=== PATIENT | male | born 1940 | race Caucasian/White ===

== ENCOUNTER 2017-05-04 12:54 | Inpatient (IN) | payer OTHER ==
[~2017-05-04] VITALS: Ht 170.2 cm; Wt 82.8 kg
[~2017-05-04 12:54] MED LIST: AMMONIUM LACTA224 GM TP; BUSPAR15 MG PO; CHILDREN'S ASPI81 M1 PO; CLARITIN,ALAVAR10 MG PO; CLONIDINE HCL0.1 MG PO; COZAAR100 MG PO; DAILY VALUE1 EACH PO; EXTRA STRENGTH500 M1 PO; FENOFIBRATE145 M1 PO; FINASTERIDE5 MG PO; FLOVENT DISKUS1 DIS2 IH; LOPRESSOR50 MG PO; METFORMIN HCL500 MG PO; RISPERDAL0.5 MG PO
[2017-05-04 14:12] LABS: EOSINOPHIL (%) 0.1 % (0-5); HEMATOCRIT 30.5 % (38.0-50.0); IMMATURE GRANULOCYTE (%) 0.7 % (0.0-0.7); IMMATURE GRANULOCYTE COUNT 0.1 K/uL; INSTRUMENT ABS NEUTROPHIL CT 13.6 K/uL; LYMPHOCYTE COUNT 1.5 K/uL (1.0-2.8); MCH 29.9 PG (29.0-34.0); MCHC 32.8 G/DL (30.0-36.0); MEAN PLAT.VOLUME 10.3 uM^3 (9.0-12.4); MONOCYTE (%) 3.2 % (3-12); MONOCYTE COUNT 0.5 K/uL (0-0.8); NEUTROPHIL (%) 86.5 % (45-76); NEUTROPHIL COUNT 13.6 K/uL (1.8-6.4); PLATELET COUNT 257 K/uL (156-360); RBC DIS.WIDTH-CV 13.1 % (11.8-14.6); RBC DIS.WIDTH-SD 42.2 % (39-53); RED BLOOD COUNT 3.35 M/uL (4.00-5.50); WHITE BLOOD COUNT 15.8 K/uL (4.1-10.2)
[2017-05-04 14:20] LABS: INTER. NORMALIZED RATIO 1.1; PROTHROMBIN TIME 12.3 SEC (10.2-12.9)
[2017-05-04 14:25] LABS: CHLORIDE 108 mEq/L (99-109); POTASSIUM 5.1 mEq/L (3.7-5.4); SODIUM 142 mEq/L (136-147)
[2017-05-04 14:27] LABS: GLUCOSE 184 mg/dL (70-99)
[2017-05-04 14:29] LABS: ANION GAP 12 MEQ/L (2-14)
[2017-05-04 14:31] LABS: GFR ESTIMATE (CALCULATED) > 59 mL/min/
[2017-05-04 14:32] LABS: UREA NITROGEN (BUN) 72 mg/dL (9-23)
[2017-05-04] MEDS ORDERED: FLONASE16 G1 BOTH NARES (16:20)
[2017-05-04] MEDS ORDERED: TOLNAFTATE10 ML TP (16:21)
[2017-05-04] MEDS ORDERED: SERTRALINE HCL25 MG PO (16:22)
[2017-05-04] MEDS ORDERED: SERTRALINE HCL50 MG PO (16:22)
[2017-05-04] MEDS ORDERED: SIMVASTATIN10 MG PO (16:23)
[2017-05-04] MEDS ORDERED: CHLORHEXIDINE473 ML MM (16:25)
[2017-05-04] MEDS ORDERED: GEMFIBROZIL600 MG PO (16:25)
[2017-05-04] MEDS ORDERED: RISPERDAL1 MG PO (16:26)
[2017-05-04] MEDS ORDERED: TYLENOL REGULA325 MG PO (16:27)
[2017-05-04] MEDS ORDERED: PHILLIPS'400 MG/5 M PO (16:27)
[2017-05-04] MEDS ORDERED: ROBAFEN DM COU118 M1 PO (16:27)
[2017-05-04] MEDS ORDERED: HALCION0.25 MG PO ×2 (16:28→16:29)
[2017-05-04 20:50] VITALS: BP 146/85
[2017-05-04 23:36] LABS: HEMATOCRIT 25.8 % (38.0-50.0); MCV 90.8 FL (86-99)
[2017-05-05 00:39] VITALS: BP 146/85
[2017-05-05 02:43] LABS: POINT-OF-CARE METER ID UU13113725
[2017-05-05 05:35] VITALS: BP 150/86
[2017-05-05 06:32] LABS: POINT-OF-CARE METER ID UU13113725
[2017-05-05 11:16] LABS: POINT-OF-CARE METER ID UU13113725
[2017-05-05 12:28] LABS: HEMATOCRIT 27.6 % (38.0-50.0); MCV 93.9 FL (86-99)
[2017-05-05 16:04] LABS: POINT-OF-CARE METER ID UU13113725
[2017-05-05 17:40] LABS: HEMATOCRIT 25.6 % (38.0-50.0); MCV 93.4 FL (86-99)
[2017-05-05 23:31] LABS: HEMATOCRIT 24.7 % (38.0-50.0); MCV 92.2 FL (86-99)
[2017-05-06 06:27] VITALS: BP 199/83
[2017-05-06 06:28] LABS: HEMATOCRIT 24.8 % (38.0-50.0); MCV 92.9 FL (86-99)
[2017-05-06 06:58] LABS: ANION GAP 7 MEQ/L (2-14); CHLORIDE 117 MEQ/L (99-109); GFR ESTIMATE (CALCULATED) > 59 mL/min/; GLUCOSE 149 mg/dL (70-99); SAMPLE HEMOLYSIS CHECK 0; SAMPLE ICTERIC CHECK 0; SAMPLE LIPEMIA CHECK 0; SODIUM 148 MEQ/L (136-147)
[2017-05-06 07:11] LABS: POTASSIUM 3.7 MEQ/L (3.7-5.4); UREA NITROGEN (BUN) 34 mg/dL (9-23)
[2017-05-06 08:48] VITALS: BP 150/80
[2017-05-06 15:09] LABS: HEMATOCRIT 22.6 % (38.0-50.0); MCV 93.8 FL (86-99)
[2017-05-06 16:08] VITALS: BP 162/68
[2017-05-06 17:36] VITALS: BP 162/78
[2017-05-06 17:38] LABS: POINT-OF-CARE METER ID UU13113725
[2017-05-06 20:58] LABS: POINT-OF-CARE METER ID UU13113725
[2017-05-07 07:27] LABS: ANION GAP 6 MEQ/L (2-14); CHLORIDE 117 MEQ/L (99-109); GFR ESTIMATE (CALCULATED) > 59 mL/min/; GLUCOSE 157 mg/dL (70-99); POTASSIUM 3.3 MEQ/L (3.7-5.4); SAMPLE HEMOLYSIS CHECK 0; SAMPLE ICTERIC CHECK 0; SAMPLE LIPEMIA CHECK 0; SODIUM 148 MEQ/L (136-147); UREA NITROGEN (BUN) 27 mg/dL (9-23)
[2017-05-07 07:35] LABS: HEMATOCRIT 26.4 % (38.0-50.0); MCV 91.7 FL (86-99)
[2017-05-07 08:00] VITALS: BP 181/75
[2017-05-07 21:34] LABS: POINT-OF-CARE METER ID UU13113725
[2017-05-07 22:42] VITALS: BP 139/80
[2017-05-08 05:33] VITALS: BP 162/70
[2017-05-08 06:02] LABS: HEMATOCRIT 26.3 % (38.0-50.0)
[2017-05-08 06:09] LABS: POINT-OF-CARE METER ID UU13113725
[2017-05-08 06:18] LABS: ANION GAP 9 MEQ/L (2-14); CHLORIDE 114 MEQ/L (99-109); GFR ESTIMATE (CALCULATED) > 59 mL/min/; GLUCOSE 145 mg/dL (70-99); POTASSIUM 3.4 MEQ/L (3.7-5.4); SAMPLE HEMOLYSIS CHECK 0; SAMPLE ICTERIC CHECK 0; SAMPLE LIPEMIA CHECK 0; SODIUM 147 MEQ/L (136-147); UREA NITROGEN (BUN) 25 mg/dL (9-23)
[2017-05-08 07:58] VITALS: BP 180/78
[2017-05-08 08:57] LABS: HEMATOCRIT 28.1 % (38.0-50.0); MCV 90.4 FL (86-99)
[2017-05-08 11:10] VITALS: BP 160/80
[2017-05-08 11:28] LABS: POINT-OF-CARE METER ID UU13113725
[2017-05-08] MEDS ORDERED: FERROUS SULFAT325 MG PO (14:41)
[2017-05-08] MEDS ORDERED: PANTOPRAZOLE SO40 MG PO (14:41)
[2017-05-08 15:53] VITALS: BP 150/68
== END 2017-05-08 16:54 | disposition home or self-care (01) | DRG 369 ==
LOC: EME 12:54 → 5EAST 17:19 → EDOF 17:19 → ENRESERV 17:33 → 5EAST 19:35
PROVIDERS: Emergency Medicine; Internal Medicine
PROC: 0DJ08ZZ Inspection of Upper Intestinal Tract, Via Natural or Artificial Opening Endoscopic (ICD-10-PCS; principal; 2017-05-05)
DX: K22.6 Gastro-esophageal laceration-hemorrhage syndrome (principal); F72 Severe intellectual disabilities; D62 Acute posthemorrhagic anemia; K92.1 Melena; I10 Essential (primary) hypertension; E11.9 Type 2 diabetes mellitus without complications; E78.5 Hyperlipidemia, unspecified; F39 Unspecified mood [affective] disorder; Z87.891 Personal history of nicotine dependence; D50.0 Iron deficiency anemia secondary to blood loss (chronic); N40.0 Benign prostatic hyperplasia without lower urinary tract symptoms
CPT/HCPCS: 70450; 73120; 73521; 80048; 82948; 85014; 85018; 85025; 85610; 86850; 86900; 86901; 86920; 99281; 99285; C9113; J1630; J1815; J2060; J2250; J3486; J7042; J7070; P9016

== ENCOUNTER 2017-06-30 11:23 | Emergency (ER) | payer OTHER ==
[~2017-06-30] VITALS: Ht 167.6 cm; Wt 81.5 kg
[~2017-06-30 11:23] MED LIST changes: +CHLORHEXIDINE473 ML MM; +FERROUS SULFAT325 MG PO; +FLONASE16 G1 BOTH NARES; +GEMFIBROZIL600 MG PO; +HALCION0.25 MG PO; +PANTOPRAZOLE SO40 MG PO; +PHILLIPS'400 MG/5 M PO; +RISPERDAL1 MG PO; +ROBAFEN DM COU118 M1 PO; +SERTRALINE HCL25 MG PO; +SERTRALINE HCL50 MG PO; +SIMVASTATIN10 MG PO; +TOLNAFTATE10 ML TP; +TYLENOL REGULA325 MG PO
[2017-06-30 11:48] VITALS: BP 187/123
== END 2017-06-30 13:33 | disposition left against medical advice (07) ==
LOC: EME 11:23
DX: R25.3 Fasciculation (principal); F79 Unspecified intellectual disabilities; Z53.21 Procedure and treatment not carried out due to patient leaving prior to being seen by health care provider
CPT/HCPCS: 99281; 99282

== ENCOUNTER 2017-07-20 19:38 | Inpatient (IN) | payer OTHER ==
[~2017-07-20] VITALS: Ht 172.7 cm; Wt 87.7 kg
[~2017-07-20 19:38] MED LIST changes: +EARWAX TREATMEN15 M1 BOTH EARS; +IRON325 M1 PO; +TRIPLE ANTIB28.35 GM TP; +TYLENOL EXTRA500 MG PO
[2017-07-20 20:43] LABS: HEMATOCRIT 40.3 % (38.0-50.0); MCH 29.6 PG (29.0-34.0); MCHC 33.5 G/DL (30.0-36.0); MCV 88.4 FL (86-99); MEAN PLAT.VOLUME 10.4 uM^3 (9.0-12.4); PLATELET COUNT 253 K/uL (156-360); RBC DIS.WIDTH-CV 13.1 % (11.8-14.6); RBC DIS.WIDTH-SD 41.9 % (39-53); RED BLOOD COUNT 4.56 M/uL (4.00-5.50)
[2017-07-20 20:55] LABS: CHLORIDE 101 mEq/L (99-109); POTASSIUM 4.6 mEq/L (3.7-5.4); SODIUM 141 mEq/L (136-147)
[2017-07-20 20:57] LABS: GLUCOSE 138 mg/dL (70-99)
[2017-07-20 20:58] LABS: ANION GAP 16 MEQ/L (2-14)
[2017-07-20 20:59] LABS: TOTAL BILIRUBIN 0.4 mg/dL (0.0-1.0)
[2017-07-20 21:00] LABS: ALKALINE PHOSPHATASE 147 IU/L (3-129)
[2017-07-20 21:01] LABS: GFR ESTIMATE (CALCULATED) > 59 mL/min/
[2017-07-20 21:02] LABS: UREA NITROGEN (BUN) 16 mg/dL (9-23)
[2017-07-20 21:05] LABS: TROP-I INTERPRETATION NEGATIVE; TROPONIN-I < 0.01 ng/mL (0.0-0.30)
[2017-07-20 21:18] LABS: PROTHROMBIN TIME 11.6 SEC (10.2-12.9)
[2017-07-20 21:31] LABS: PTT 20.3 SEC (25-37)
[2017-07-20 23:52] LABS: HEMATOCRIT 40.3 % (38.0-50.0); MCV 89.2 FL (86-99)
[2017-07-20] MEDS ORDERED: PROTONIX40 MG PO (23:53)
[2017-07-20] MEDS ORDERED: ALPRAZOLAM0.25 M2 PO (23:54)
[2017-07-21 04:14] LABS: HEMATOCRIT 34.8 % (38.0-50.0); MCV 89.5 FL (86-99)
[2017-07-21 09:00] LABS: HEMATOCRIT 39.8 % (38.0-50.0); MCV 88.6 FL (86-99)
[2017-07-21 12:22] LABS: POINT-OF-CARE METER ID UU13113702
[2017-07-21 17:57] LABS: HEMATOCRIT 35.5 % (38.0-50.0); MCV 88.8 FL (86-99)
[2017-07-21 18:25] LABS: POINT-OF-CARE METER ID UU13113725
[2017-07-21 23:22] LABS: HEMATOCRIT 36.8 % (38.0-50.0)
[2017-07-22 00:03] VITALS: BP 177/81
[2017-07-22 07:39] VITALS: BP 194/84
[2017-07-22 11:12] LABS: HEMATOCRIT 37.2 % (38.0-50.0); MCV 88.6 FL (86-99)
[2017-07-22 11:40] LABS: ANION GAP 10 MEQ/L (2-14); CHLORIDE 107 MEQ/L (99-109); GLUCOSE 130 mg/dL (70-99); SAMPLE HEMOLYSIS CHECK 0; SAMPLE ICTERIC CHECK 0; SAMPLE LIPEMIA CHECK 0; SODIUM 143 MEQ/L (136-147); UREA NITROGEN (BUN) 7 mg/dL (9-23)
[2017-07-22 11:42] LABS: GFR ESTIMATE (CALCULATED) > 59 mL/min/; POTASSIUM 3.4 MEQ/L (3.7-5.4)
[2017-07-22 11:52] LABS: POINT-OF-CARE METER ID UU13113725
[2017-07-22 22:54] LABS: HEMATOCRIT 33.7 % (38.0-50.0); MCV 88.2 FL (86-99)
[2017-07-22 23:33] VITALS: BP 124/56
[2017-07-23 06:10] LABS: POINT-OF-CARE METER ID UU13113774
[2017-07-23 06:25] LABS: HEMATOCRIT 35.1 % (38.0-50.0); MCH 29.9 PG (29.0-34.0); MCHC 33.6 G/DL (30.0-36.0); MCV 89.1 FL (86-99); MEAN PLAT.VOLUME 10.5 uM^3 (9.0-12.4); PLATELET COUNT 189 K/uL (156-360); RBC DIS.WIDTH-CV 13.4 % (11.8-14.6); RBC DIS.WIDTH-SD 43.3 % (39-53); RED BLOOD COUNT 3.94 M/uL (4.00-5.50); WHITE BLOOD COUNT 7.7 K/uL (4.1-10.2)
[2017-07-23 07:40] VITALS: BP 158/69
[2017-07-23 12:08] LABS: POINT-OF-CARE METER ID UU13113725
[2017-07-23 15:19] VITALS: BP 144/70
[2017-07-23 18:08] LABS: POINT-OF-CARE METER ID UU13113774
[2017-07-23 21:06] LABS: HEMATOCRIT 36.9 % (38.0-50.0); MCV 88.5 FL (86-99)
[2017-07-23 23:42] LABS: HEMATOCRIT 33.8 % (38.0-50.0); MCV 87.6 FL (86-99)
[2017-07-24 01:00] VITALS: BP 134/63
[2017-07-24 01:03] LABS: POINT-OF-CARE METER ID UU13113725
[2017-07-24 05:57] LABS: POINT-OF-CARE METER ID UU13113774
[2017-07-24 06:09] LABS: MCH 29.1 PG (29.0-34.0); MCHC 33.1 G/DL (30.0-36.0); MCV 87.9 FL (86-99); MEAN PLAT.VOLUME 10.5 uM^3 (9.0-12.4); PLATELET COUNT 202 K/uL (156-360); RBC DIS.WIDTH-CV 13.2 % (11.8-14.6); RBC DIS.WIDTH-SD 42.1 % (39-53); RED BLOOD COUNT 3.98 M/uL (4.00-5.50); WHITE BLOOD COUNT 7.9 K/uL (4.1-10.2)
[2017-07-24 08:15] VITALS: BP 145/76
[2017-07-24 11:24] LABS: POINT-OF-CARE METER ID UU13113774
[2017-07-24 18:05] VITALS: BP 168/74
[2017-07-24 18:36] LABS: POINT-OF-CARE METER ID UU13113774
[2017-07-25 00:36] LABS: POINT-OF-CARE METER ID UU13113774
[2017-07-25 05:35] LABS: POINT-OF-CARE METER ID UU13113725
[2017-07-25 09:41] VITALS: BP 133/63
[2017-07-25 12:04] LABS: POINT-OF-CARE METER ID UU13113774
[2017-07-25 15:20] LABS: POINT-OF-CARE METER ID UU13113675; POINT-OF-CARE USER ID 515036437
[2017-07-25 16:15] VITALS: BP 180/82
[2017-07-25 17:20] VITALS: BP 148/89
[2017-07-25 18:16] LABS: POINT-OF-CARE METER ID UU13113774
[2017-07-25 23:49] VITALS: BP 122/61
[2017-07-26 00:15] LABS: POINT-OF-CARE METER ID UU13113725
[2017-07-26 06:06] LABS: POINT-OF-CARE METER ID UU13113725
[2017-07-26 06:27] LABS: ANION GAP 8 MEQ/L (2-14); CHLORIDE 110 MEQ/L (99-109); GFR ESTIMATE (CALCULATED) > 59 mL/min/; GLUCOSE 110 mg/dL (70-99); SAMPLE HEMOLYSIS CHECK 0; SAMPLE ICTERIC CHECK 0; SAMPLE LIPEMIA CHECK 0; SODIUM 144 MEQ/L (136-147); UREA NITROGEN (BUN) 9 mg/dL (9-23)
[2017-07-26 07:43] VITALS: BP 174/72
[2017-07-26] MEDS ORDERED: FLUCONAZOLE100 MG PO (14:09)
== END 2017-07-26 15:40 | disposition home or self-care (01) | DRG 312 ==
LOC: EME 19:38 → EDOF 07-21 00:40 → 5EAST 07-21 00:40 → ENRESERV 07-21 01:01 → CANRESERV 07-21 01:01 → ENRESERV 07-21 10:04 → 5EAST 07-21 15:11
PROVIDERS: Emergency Medicine; Internal Medicine
PROC: 0DB78ZX Excision of Stomach, Pylorus, Via Natural or Artificial Opening Endoscopic, Diagnostic (ICD-10-PCS; principal; 2017-07-24)
DX: R55 Syncope and collapse (principal); B37.81 Candidal esophagitis; K22.10 Ulcer of esophagus without bleeding; K29.70 Gastritis, unspecified, without bleeding; F29 Unspecified psychosis not due to a substance or known physiological condition; E11.9 Type 2 diabetes mellitus without complications; I10 Essential (primary) hypertension; F72 Severe intellectual disabilities; N40.0 Benign prostatic hyperplasia without lower urinary tract symptoms; N28.1 Cyst of kidney, acquired; F39 Unspecified mood [affective] disorder; E78.5 Hyperlipidemia, unspecified; Z87.19 Personal history of other diseases of the digestive system
CPT/HCPCS: 71010; 74176; 80048; 80053; 81003; 82948; 83605; 83880; 84484; 85014; 85018; 85027; 85610; 85610 GA; 85730; 85730 GA; 86850; 86900; 86901; 88305; 88342 TC; 99281; 99285; C9113; J1630; J2250; J7030; J7042